=== PATIENT | female | born 1995 | race Caucasian/White ===

== ENCOUNTER 2017-01-11 15:41 | Inpatient (IN) | payer OTHER ==
[~2017-01-11] VITALS: Ht 157.5 cm; Wt 65.8 kg
--- NOTE | 2017-01-11 16:15 | NUR ---
PRE-ADMISSION NOTE: 21 yo female admitted to [facility] for Heroin, Benzos, Crack, meth and cocaine dependence. Pt is alert and oriented X4. Color pale, skin warm and dry. Respirations even and unlabored. Pt is 5feet 2inches tall and weighs 145 pounds. Vital signs: B/P 107/70 P: 99 T: 98.3 RR: 18 Pulse OX 98% Pt has allergies to Tegretol and Trileptal Denies PCP
[2017-01-11 16:22] VITALS: BP 107/70
[2017-01-11 16:35] LABS: *URINE HCG, QUAL NEGATIVE (NEGATIVE)
[2017-01-11] MEDS ORDERED: PRAZ2CAP2 PO (16:43)
[2017-01-11] MEDS ORDERED: TRAZ300T2 PO (16:43)
[2017-01-11] MEDS ORDERED: GABA-534 PO (16:43)
[2017-01-11] MEDS ORDERED: VALA500T PO (16:43)
[2017-01-11] MEDS ORDERED: LITH300C2 PO (16:43)
[2017-01-11] MEDS ORDERED: DULO60CA45 PO (16:43)
[2017-01-11] MEDS ORDERED: LORAZEPAM 2 MG/1 ML VIAL IM PRN (16:45)
[2017-01-11] MEDS ORDERED: BUPRENORPHINE HCL 2 MG TAB.SUBL SL PRN (16:45)
[2017-01-11] MEDS ORDERED: IBUPROFEN 600 MG TABLET PO PRN (16:45)
[2017-01-11] MEDS ORDERED: METHOCARBAMOL 750 MG TABLET PO PRN (16:45)
[2017-01-11] MEDS ORDERED: ONDANSETRON ODT 4 MG TAB.RAPDIS SL PRN (16:45)
[2017-01-11] MEDS ORDERED: LORAZEPAM 1 MG TABLET PO PRN ×2 (16:45)
[2017-01-11] MEDS ORDERED: CLONIDINE HCL 0.1 MG TABLET PO PRN (16:45)
[2017-01-11] MEDS ORDERED: LOPERAMIDE HCL 2 MG CAPSULE PO PRN ×2 (16:45)
[2017-01-11] MEDS ORDERED: MAG HYDROX/AL HYDROX/SIMETH 30 ML LIQUID UDC PO PRN (16:45)
[2017-01-11] MEDS ORDERED: MAGNESIUM HYDROXIDE 30 ML LIQUID UDC PO PRN (16:45)
[2017-01-11] MEDS ORDERED: DICYCLOMINE HCL 20 MG TABLET PO PRN (16:45)
[2017-01-11] MEDS ORDERED: ONDANSETRON 4 MG/2 ML VIAL IM PRN (16:45)
[2017-01-11] MEDS ORDERED: ACETAMINOPHEN 325 MG TABLET PO PRN (16:45)
[2017-01-11] MEDS ORDERED: MIRALAX 17 GM POWD.PACK PO PRN (16:45)
[2017-01-11] MEDS ORDERED: diphenhydrAMINE 50 MG CAPSULE PO PRN (16:45)
[2017-01-11 17:02] VITALS: BP 107/70
[2017-01-11 17:02] LABS: *AMPHETAMINE, URINE POSITIVE (NEGATIVE); *BARBITURATE, URINE NEGATIVE (NEGATIVE); *CANNABINOID, URINE NEGATIVE (NEGATIVE); *COCCAINE, URINE NEGATIVE (NEGATIVE); *OPIATE, URINE POSITIVE (NEGATIVE); *PHENCYCLIDINE SCREEN,URINE NEGATIVE (NEGATIVE)
--- NOTE | 2017-01-11 17:42 | NUR ---
ADMISSION NOTE: 21 yo female admitted to [facility] for Heroin, Benzos, Crack, meth and cocaine dependence. Pt is alert and oriented X4. Color pale, skin warm and dry. Respirations even and unlabored. Pt is 5 feet 2inches tall and weighs 145 pounds. Pt has abscess R forearm and multiple "picking" adams from doing meth. Vital signs: B/P 107/70 P: 99 T: 98.3 RR: 18 Pulse OX 98% Initial COWS 17 CIWA 13. Subutex 4mg po prn and Ativan 1mg po prn given Pt has allergies to Tegretol and Trileptal Denies PCP Pt states she was in [facility] 2 weeks ago and [facility] 24hours ago for "meth induced psychosis." Pt states [facility] helped her be admitted here. Pt has a history of anxiety, depression, bipolar, ADHD and Hep C+. 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 Substance History: Heroin: 4g/day IV last use 2 days ago Zanax: 3 bars a day Last use today Ativan: 6 2mg pills IV Last use today Crack cocaine: 400$/day smoke last use 5 days ago Meth: 1gm/day smoke Last use yesterday
[2017-01-11 18:32] LABS: *BILIRUBIN,URIN NEGATIVE (NEGATIVE); *BLOOD, URINE NEGATIVE (NEGATIVE); *COLOR,URINE YELLOW (YELLOW); *KETONES,URINE NEGATIVE (NEGATIVE); *PROTEIN,URINE NEGATIVE (NEGATIVE); LEUKOCYTE ESTERASE ,URINE TRACE (NEGATIVE); NITRITE, URINE NEGATIVE (NEGATIVE); UGLUCOSE NEGATIVE (NEGATIVE)
--- NOTE | 2017-01-11 18:50 | NUR ---
Pt states feels improved after Subutex and Ativan prn. COWS 12 and CIWA 9
--- NOTE | 2017-01-11 18:52 | NUR ---
END OF SHIFT NOTE: Report given to guide plant nurse . 21 yo female admitted to [facility] for Heroin, Benzos, Crack, meth and cocaine dependence. Pt is alert and oriented X4. Color pale, skin warm and dry. Respirations even and unlabored. Pt is 5 feet 2inches tall and weighs 145 pounds. Pt has abscess R forearm and multiple "picking" adams from doing meth. Pt in room. VSS. Subutex 4mg sl prn and Ativan 1mg po prn given for COWS 17 and CIWA 13 on admission. Safety precautions observed. Call light within reach.
[2017-01-11 19:01] LABS: *CLARITY,URINE HAZY (CLEAR)
[2017-01-11 19:02] LABS: BACTERIA,URINE MODERATE /HPF (NONE SEEN); MUCUS,URINE FEW /LPF (0-FEW); RBC,URINE 0-3 /HPF (0-3); SQUAMOUS EPITHELIAL CELL,UR MANY /HPF (NONE SEEN); YEAST,URINE MODERATE /HPF (NONE SEEN)
--- NOTE | 2017-01-11 19:30 | NUR ---
START OF SHIFT Report received from day shift nurse, Pt is a 21 yo female admitted to [facility] for Heroin, Benzos, Crack, meth and cocaine dependence. Pt is alert and oriented X4. Pt received in room,resting in bed with eyes closed; arousable on approach;breathing is even and non labored; Color pale, skin warm and dry. Pt has abscess R forearm and multiple "picking" adams from doing meth. Subutex 4mg sl prn and Ativan 1mg po prn were given by day shift for COWS 17 and CIWA 13 on admission. All safety measures in place per hospital policy; Call light within reach;will continue to monitor.
[2017-01-11 20:00] VITALS: BP 98/68
[2017-01-11 20:39] LABS: ALANINE AMINOTRANSFERASE 106 U/L (14-59); ALKALINE PHOSPHATASE 80 U/L (50-136); ASPARTATE AMINOTRANSFERASE 53 U/L (15-37); BILIRUBIN,TOTAL 0.3 mg/dL (0.2-1.0); CARBON DIOXIDE 31 mmol/L (21-32); CHLORIDE 102 mmol/L (98-107); CREATININE 0.8 mg/dL (0.6-1.3); GLUCOSE 84 mg/dL (74-106); MAGNESIUM 2.3 mg/dL (1.8-2.4); POTASSIUM 4.4 mmol/L (3.5-5.1); TOTAL PROTEIN, SERUM 7.8 g/dL (6.4-8.2); UREA NITROGEN, BLOOD 11 mg/dL (7-18)
[2017-01-11 20:40] LABS: BASOPHILS # (AUTO) 0.2 K/uL (0.0-8.0); BASOPHILS % (AUTO) 2.4 % (0.0-2.0); EOSINOPHILS # (AUTO) 0.1 K/uL (0.0-0.7); EOSINOPHILS % (AUTO) 1.1 % (0.0-7.0); HEMATOCRIT 42.1 % (37-47); LYMPHOCYTES % (AUTO) 21.1 % (20.5-51.5); MEAN CORPUSCULAR HGB CONC 33 g/dL (32.0-37.0); MEAN CORPUSCULAR VOLUME 84.3 FL (81.0-99.0); MONOCYTES # (AUTO) 0.6 K/UL (0.1-1.30); MONOCYTES % (AUTO) 6.4 % (0.0-11.0); NEUTROPHILS # (AUTO) 6.4 K/UL (1.8-8.9); PLATELET COUNT (AUTO) 428 K/UL (150-450); WHITE BLOOD COUNT (AUTO) 9.3 K/UL (4.0-11.2)
[2017-01-11 20:49] LABS: ETHANOL < 3 MG/DL (0-0)
[2017-01-11] MEDS ORDERED: LORAZEPAM 1 MG TABLET PO SCH (21:00)
[2017-01-11] MEDS ORDERED: PRAZOSIN HCL 1 MG CAPSULE PO SCH (21:00)
[2017-01-11] MEDS: LACTOBACILLUS RHAMNOSUS GG 1 EACH CAPSULE PO SCH (21:39)
[2017-01-11] MEDS: PRAZOSIN HCL 1 MG CAPSULE PO SCH (21:39)
[2017-01-11] MEDS: GABAPENTIN 300 MG CAPSULE PO SCH (21:39)
[2017-01-11] MEDS: SULFAMETH/TRIMETH 800/160 MG TABLET PO SCH (21:40)
[2017-01-11] MEDS ORDERED: LORAZEPAM 1 MG TABLET ONE (21:46)
--- NOTE | 2017-01-11 21:47 | NUR ---
PRN BENADRYL GIVEN ORDERED FOR C/O INSOMNIA/ITCHING.WILL MONITOR FOR EFFECTIVENESS.
--- NOTE | 2017-01-11 23:00 | NUR ---
PRN F/U PT IS RESTING IN BED WITH EYES CLOSED,IN DEEP SLEEP.NO S/S OF DISTRESS NOTED,WILL CONTINUE TO MONITOR.
[2017-01-12] VITALS: BP 102/71
[2017-01-12 04:00] VITALS: BP 90/55
--- NOTE | 2017-01-12 07:00 | NUR ---
END OF SHIFT Pt is a 21 yo female admitted to [facility] for Heroin, Benzos, Crack, meth and cocaine dependence. Pt is alert and oriented X4. Pt has abscess R forearm and multiple "picking" adams from doing meth. Pt will start on 5 day Subutex and Ativan tapers today. Last COWS/CIWA=3. PRN Benadryl was given to help sleep; pt slept 10 hrs; fluid intake was 641 mls,voided x 2. All safety measures in place per hospital policy; Call light within reach;will continue to monitor.
--- NOTE | 2017-01-12 07:30 | NUR ---
start of shift note: received pt from evening or night nurse supervisor nurse, pt is admitted for opiate/benzo/meth withdrawal/dependence. pts last cows 3 and ciwa 3. will continue to monitor pt for any changes and continue to meet pts needs
[2017-01-12] MEDS: BUPRENORPHINE HCL 2 MG TAB.SUBL SL SCH ×4 (08:36→21:21)
[2017-01-12] MEDS: GABAPENTIN 300 MG CAPSULE PO SCH ×2 (08:36→21:20)
[2017-01-12] MEDS: LORAZEPAM 1 MG TABLET PO SCH ×4 (08:36→21:19)
[2017-01-12] MEDS: SULFAMETH/TRIMETH 800/160 MG TABLET PO SCH ×2 (08:36→21:19)
[2017-01-12] MEDS: LACTOBACILLUS RHAMNOSUS GG 1 EACH CAPSULE PO SCH ×2 (08:37→21:19)
[2017-01-12] MEDS: VALACYCLOVIR HCL 500 MG TABLET PO SCH (08:37)
[2017-01-12] MEDS ORDERED: QUETIAPINE FUMARATE 25 MG TABLET PO PRN (08:45)
[2017-01-12] MEDS ORDERED: TUBERCULIN,PURIF.PROT.DERIV. 5 TU/0.1 ML TEST ID ONE (09:00)
[2017-01-12 10:20] VITALS: BP 104/60
--- NOTE | 2017-01-12 13:32 | NUR ---
lucas leonard: pt verbalized she has hx of hallucinations and psychosis and that she started seeing things floating.
--- NOTE | 2017-01-12 14:30 | NUR ---
prn -re-assessment: pt is sleeping in bed, no psychosis or agitation noted
[2017-01-12] MEDS: DULOXETINE 60 MG CAPSULE.DR PO SCH (14:32)
[2017-01-12 14:38] VITALS: BP 117/68
[2017-01-12 16:05] VITALS: BP 117/68
[2017-01-12] MEDS: LITHIUM CARBONATE 300 MG CAPSULE PO SCH (17:39)
[2017-01-12] MEDS ORDERED: Medication Not On Formulary EA (Trazodone Hcl (Desyrel) 1 TAB) PO SCH (18:00)
--- NOTE | 2017-01-12 19:14 | NUR ---
end of shift note: pt is in stable condition at this time, pt is admitted to [facility] for opiate/benzo/crack/meth withdrawal/dependence. pt's last cows 3 and ciwa 6. pt is in and out of reality and situation . pt is re-direct able. offered pt 1:1 for safety pt verbalized she doesn't need at this time. will endorse pt to shiftman nurse
[2017-01-12 20:00] VITALS: BP 111/67
--- NOTE | 2017-01-12 20:00 | NUR ---
1999 Patient received awake, but drowsy in manner and speech, and standing in hallway, having just returned from [facility] in recreation room. Patient responds to nurse's greeting and introduction with poor eye contact and slow, soft, somewhat drowsy, " Oh, hi. Are you my nurse now?" Patient assisted to her room #307 for V/S and nurse assess. Patient's gait is slightly slow, measured but fairly steady overall. Patient's color is pale pink and her skin is warm, dry and intact. Patient is oriented to person, place and her situation, but had to be reoriented to day, date and time. Patient denies any pain or other discomforts, but states that she does have some mild dizziness and visual hallucinations "sometimes, but not now". Patient states that she did eat 'a little' today of her regular diet and she is taking fluids ad vazquez, with no gastric issues so far. Patient c/o having " cotton mouth" sometimes, so she takes fluids more at those times. Vital signs are: 97.8-75-16 111/67, O2 Sat 98%, COWS 3, CIWA 7. Patient was admitted on 01/11/17 for: Heroin, Xanax, Ativan, Crack and Methamphetamine withdrawal and she is presently on both a 5-Day Ativan medication taper and a 5-Day Subutex medication taper, which she is apparently tolerating well thus far. Fall/seizure precautions continue. Patient states that [facility]. Bed is locked and in lowest position, bed rails are up X 2 and call light on patient's bed.
[2017-01-12] MEDS: PRAZOSIN HCL 1 MG CAPSULE PO SCH (21:20)
[2017-01-12] MEDS: TRAZODONE 100 MG TABLET PO SCH (21:20)
[2017-01-13] VITALS: BP 100/60
--- NOTE | 2017-01-13 | NUR ---
V/S : 98-68-12 100/60, O2 Sat 96%. Patient too sleepy to participate in COWS, CIWA assessments. COWS, CIWA ordered Q4h, while awake.
--- NOTE | 2017-01-13 04:00 | NUR ---
Patient awake and firmly, repeatedly insists that she must have a cigarette, though she appears slightly wobbly and is slurring her words. Patient refuses V/S, COWS, CIWA to be done at this time. Patient taken down to hospital patio for smoke break, via wheelchair, accompanied by HOUSEKEEPER.
--- NOTE | 2017-01-13 06:30 | NUR ---
0630 Patient slept a total of 8.5 hours and she had 3 voids and no stools. Total intake was 1,256 ml p.o. No prn medications given this shift. V/SS afebrile, last COWS 3, last CIWA 7 at 0000. Patient is presently sleeping comfortably with eyes closed and respirations deep, quiet, unlabored at 12. Occasional moist cough noted when awake and patient is mostly only 'fairly' alert when awake, speaking with slurred, sometimes incoherent speech and ambulating frequently in wobbly manner. Patient had minimal staff and wheelchair assist at times, when she was ambulating from her bed.
--- NOTE | 2017-01-13 07:45 | NUR ---
START OF SHIFT Rcvd endorsement from ongoing nurse, client is in room, she is a/o to name, place. she presents with depressed mood, flat affect, flushed face, enlarged pupils, and delayed speech. She reports anxiety, decreased appetite, mild visual hallucinations restless legs, and fatigue. She denies any N/V/D. Encourage client to attend to group therapy for skills to maintain sober. Encourage client to increase PO fluid intake as tolerated to facilitate detox. Client is a 21 y/o female, admitted to [facility] for withdrawal from heroin and benzodiazepines. She is on a 5 day Ativan taper and 5 day Subutex taper. Last CIWA / 3 @ 2200. Client had an uneventful night, she slept 8 hrs. She reports a hx of withdrawal-induced seizures, Client reports allergy to Tegretol, Trileptal, she is full code, regular diet. Side rails x 2 up/padded for seizure precautions. Call light within reach.
[2017-01-13 08:00] VITALS: BP 115/75
[2017-01-13] MEDS ORDERED: LORAZEPAM 1 MG TABLET PO SCH ×2 (09:00→21:00)
[2017-01-13] MEDS: LITHIUM CARBONATE 300 MG CAPSULE PO SCH ×2 (09:13→16:51)
[2017-01-13] MEDS: VALACYCLOVIR HCL 500 MG TABLET PO SCH (09:13)
[2017-01-13] MEDS: DULOXETINE 60 MG CAPSULE.DR PO SCH (09:13)
[2017-01-13] MEDS: BUPRENORPHINE HCL 2 MG TAB.SUBL SL SCH ×3 (09:13→20:33)
[2017-01-13] MEDS: SULFAMETH/TRIMETH 800/160 MG TABLET PO SCH ×2 (09:13→20:32)
[2017-01-13] MEDS: LACTOBACILLUS RHAMNOSUS GG 1 EACH CAPSULE PO SCH ×2 (09:13→20:30)
[2017-01-13] MEDS: GABAPENTIN 300 MG CAPSULE PO SCH ×2 (09:13→20:32)
[2017-01-13 10:08] LABS: HEPATITIS B SURFACE AG Negative (Negative)
--- NOTE | 2017-01-13 12:00 | NUR ---
Unable to assess for CIWA/COWS client is too sedated. Dr. Garcia notified.
[2017-01-13 12:55] VITALS: BP 101/65
[2017-01-13] MEDS ORDERED: LORAZEPAM 1 MG TABLET PO ONE (15:00)
[2017-01-13 16:55] VITALS: BP 119/73
--- NOTE | 2017-01-13 19:15 | NUR ---
END OF SHIFT Client is a 21 y/o female, admitted to [facility] for withdrawal from heroin and benzodiazepines. She is on a 5 day Ativan taper and 5 day Subutex taper. Last CIWA 9/ COWS 8 @ 0900. Client is on a 1:1 sitter for safety precautions. Medications scheduled at 1500, 1700 held d/t client too sedated, unable to assess for COWS/CIWA, Dr. Garcia and CN notified. Client is non-compliant with group therapy d/t withdrawal symptoms. Client consumes 50% of meals, PO fluid intake 500mL, void x 2. She reports a hx of withdrawal-induced seizures, Client reports allergy to Tegretol, Trileptal, she is full code, regular diet. Side rails x 2 up/padded for seizure precautions. Call light within reach.
--- NOTE | 2017-01-13 19:15 | NUR ---
START OF SHIFT NOTE: Patient is a 21 year old female, admitted to [facility] on 01/11/2017 for Benzodiazepines, Opioid, Methamphetamine, Ativan, and Crack dependence. Patient is continuing ordered 5 Day Ativan and 5 Day Subutex Taper which tolerated well without ASE. Patient remains compliant with treatment, medications, and diet regime. Patient reports Allergy to Tegretol, Trileptal, Carbamazepine, Oxcarbazepine. Patient is on Full code, Regular Diet, Fall and Seizures Precautions. PMH: Anxiety, Depression, ADHD Bipolar disorder, Insomnia, Hepatitis C, Herpes Simplex Virus Type, PTSD, and History of Withdrawal induced Seizures. Patient report Substance Use History: "Xanax PO 3 bars every day during last 18 months. Last used 3 bars on 01/11/2017; Ativan PO 6 pills of 2 mg each during last 18 months. Last used 6 pills of 2 mg each PO on 01/11/2017. Methamphetamine smoke 1 gram every day last 2 weeks. Last used 1 gram smoke on 01/10/2017. Heroin via IV 4 grams every day. Last used 4 grams via IV on 01/09/2017. Crack 1 grams smoke every day during last 2 weeks. Last smoke 1 gram on 01/06/2017". Patient reports recent treatment history: "[facility] - 2 weeks ago. "[facility]" - on 01/10/2017 for "methamphetamine induced psychosis". MRSA done and sent to lab. Upon endorsement, patient is in her room resting on the bed alert and oriented x2. Sitter at bedside for safety, for unstable gait. VSWNL. COWS 7,CIWA 8. Respirations are even and unlabored. Lung Sounds are clear throughout. Patient denied SOB and chest pain. Heart rate is regular, no murmur noted. Bowel Sounds are active in all four quadrants. Abdomen is soft and non-tender. Skin is warm and dry to touch. Patient has intact abscess on her Right forearm and multiple picking adams from Meth doing. All needs met. Safety measures on place. Call light within reach, bed in lowest position and locked, padded rails up bilaterally rails up bilaterally. Patient endorsed by day shift nurse. Report received. Will continue to monitor closely.
[2017-01-13 20:00] VITALS: BP 106/69
[2017-01-13] MEDS: TRAZODONE 100 MG TABLET PO SCH (20:30)
[2017-01-13] MEDS: PRAZOSIN HCL 1 MG CAPSULE PO SCH (20:31)
[2017-01-13] MEDS: OLANZAPINE 5 MG TABLET PO SCH (20:32)
[2017-01-14] VITALS: BP 107/63
[2017-01-14 04:00] VITALS: BP 107/70
--- NOTE | 2017-01-14 07:09 | NUR ---
END OF SHIFT NOTE: Patient is a 21 year old female, admitted to [facility] on 01/11/2017 for Benzodiazepines, Opioid, Methamphetamine, Ativan, and Crack dependence. Patient is continuing ordered 5 Day Ativan and 5 Day Subutex Taper which tolerated well without ASE. Patient remains compliant with treatment, medications, and diet regime. Patient reports Allergy to Tegretol, Trileptal, Carbamazepine, Oxcarbazepine. Patient is on Full code, Regular Diet, Fall and Seizures Precautions. PMH: Anxiety, Depression, ADHD Bipolar disorder, Insomnia, Hepatitis C, Herpes Simplex Virus Type, PTSD, and History of Withdrawal induced Seizures . MRSA nares collected and sent to lab. 1:1 Sitter at bedside for safety, as ordered. Last COWS 6, CIWA 5 @0400. Last VS @0400: T:97.9, BP 107/70, HR 89, RA SPO2 96%, RR 16, pain level "0/10". Patient denies SI/HI. Respirations unlabored and even. Patient denied SOB and chest pain. Abdomen is soft and non-tender. Skin is warm and dry to touch. Patient's RFA intact abscess, and continuing antibiotic therapy Bactrim Ds 1 tab Q12H PO. No PRN Medications administrated last lieutenant shift supervisor. Patient slept 9 hours, intake 794 ml, voided x1. Encouraged fluids intake as tolerated. Patient attended groups activities. All needs met. Safety measures on place. Call light within reach, bed in lowest position and locked, padded rails up bilaterally. Patient endorsed to day shift nurse. Report given.
--- NOTE | 2017-01-14 07:35 | NUR ---
START OF SHIFT Rcvd endorsement from ongoing nurse, client is in room, she sound asleep,RR 14, even, non-labored, difficult to arouse to name, speech unclear, unable to open eyes for long, she stated, I'm just to sleepy." Client is on 1:1 for safety d/t unsteady gait. Client is on antibiotic therapy Bactrim DS q12h for infection, intact abscess on R AC. Encourage client to attend to group therapy for skills to maintain sober. Encourage client to increase PO fluid intake as tolerated to facilitate detox, reinforcement needed. Client is a 21 y/o female, admitted to [facility] for withdrawal from heroin and benzodiazepines. She is on a 5 day Ativan taper and 5 day Subutex taper. Last CIWA 5/ COWS 6 @ 2200. Client had an uneventful night, she slept 9 hrs. She reports a hx of withdrawal-induced seizures, Client reports allergy to Tegretol, Trileptal, she is full code, regular diet. Side rails x 2 up/padded for seizure precautions. Call light within reach.
[2017-01-14] MEDS: LORAZEPAM 1 MG TABLET PO SCH ×5 (08:00→16:02)
--- NOTE | 2017-01-14 08:00 | NUR ---
Unable to assess CIWA/COWS, client is too sedated. CN notified
[2017-01-14] MEDS: LACTOBACILLUS RHAMNOSUS GG 1 EACH CAPSULE PO SCH ×3 (09:00→21:25)
[2017-01-14] MEDS: SULFAMETH/TRIMETH 800/160 MG TABLET PO SCH ×3 (09:00→21:25)
[2017-01-14] MEDS: LITHIUM CARBONATE 300 MG CAPSULE PO SCH ×3 (09:00→16:02)
[2017-01-14] MEDS: BUPRENORPHINE HCL 2 MG TAB.SUBL SL SCH ×4 (09:00→21:25)
[2017-01-14] MEDS: DULOXETINE 60 MG CAPSULE.DR PO SCH ×2 (09:00→10:22)
[2017-01-14] MEDS: GABAPENTIN 300 MG CAPSULE PO SCH ×3 (09:00→21:25)
[2017-01-14] MEDS: VALACYCLOVIR HCL 500 MG TABLET PO SCH ×2 (09:00→10:20)
[2017-01-14 10:33] VITALS: BP 117/74
--- NOTE | 2017-01-14 12:50 | NUR ---
Unable to assess CIWA/COWS, client is too sedated. CN and notified
[2017-01-14 12:57] VITALS: BP 110/66
--- NOTE | 2017-01-14 13:19 | NUR ---
Held Ativan 1mg PO client too sedated, RR 14, even, non-labored. She is difficult to arouse, unable to maintain eyes open, incoherent speech. CN notified. Addendum: 01/14/17 at 1321 by YAN JJ RN 1:1 sitter at bedside. Call light within reach.
[2017-01-14 16:03] VITALS: BP 114/75
--- NOTE | 2017-01-14 19:24 | NUR ---
END OF SHIFT Client is a 21 y/o female, admitted to [facility] for withdrawal from heroin and benzodiazepines. She is on a 5 day Ativan taper and 5 day Subutex taper. Last CIWA 8 @ 1600. Client is on 1: 1 sitter promoting safety. Client is in room, she is a/o to name, place, and situation. Held Ativan 1mg PO client too sedated, RR 14, even, non-labored. She was difficult to arouse, unable to maintain eyes open, incoherent speech. Client was not compliant with group therapy, encouragement needed. Client consumes 50-75 % of meals, adequate PO fluid intake 1400mL, void x 3. She reports a hx of withdrawal-induced seizures, Client reports allergy to Tegretol, Trileptal, she is full code, regular diet. Side rails x 2 up/padded for seizure precautions. Call light within reach.
[2017-01-14 20:00] VITALS: BP 109/74
--- NOTE | 2017-01-14 20:00 | NUR ---
Start of Shift Patient is a 21-year old, female, admitted for Opiates and Benzodiazepines dependence. Patient was placed on an Ativan and Subutex tapers, both to end at 11/24 in the evening. Pt is Full Code, on Regular Diet and is allergic to Tegretol, Trileptal, Carbamazepine, Oxcarbazepine and Withdrawal-induced seizures. Pt with history of Anxiety, Depression, Bipolar DO, ADHD, Hep C, Herpes Simplex Virus II, PTSD and Insomnia. Client is on 1:1 for safety d/t unsteady gait. Client is on antibiotic therapy Bactrim DS q12h for infection, intact abscess on R AC. Patient is AAOx4, noted to be squinting her eyes when trying to see. Skin is intact. Fall, seizure, universal and safety prec in place. Call light within reach. No SOB noted. Latest COWS-7, CIWA-8. Will continue to monitor.
[2017-01-14] MEDS: OLANZAPINE 5 MG TABLET PO SCH (21:25)
[2017-01-14] MEDS: PRAZOSIN HCL 1 MG CAPSULE PO SCH (21:26)
[2017-01-14] MEDS: TRAZODONE 100 MG TABLET PO SCH (21:26)
[2017-01-15] VITALS: BP 103/72
[2017-01-15 04:00] VITALS: BP 101/59
--- NOTE | 2017-01-15 07:15 | NUR ---
End of Shift Patient is a 21-year old, female, admitted for Opiates and Benzodiazepines dependence. Patient was placed on an Ativan and Subutex tapers, both to end at 11/24 in the evening. Pt is Full Code, on Regular Diet and is allergic to Tegretol, Trileptal, Carbamazepine, Oxcarbazepine and Withdrawal-induced seizures. Pt with history of Anxiety, Depression, Bipolar DO, ADHD, Hep C, Herpes Simplex Virus II, PTSD and Insomnia. Client is on 1:1 for safety d/t unsteady gait. Client is on antibiotic therapy Bactrim DS q12h for infection, intact abscess on R AC. Patient is AAOx4, noted to be squinting her eyes when trying to see. Skin is intact. Fall, seizure, universal and safety prec in place. Call light within reach. No SOB noted. Latest COWS-5, CIWA-5, slept for 7 hours. Endorsed to AM shift nurse for continuity of care.
--- NOTE | 2017-01-15 07:45 | NUR ---
START OF SHIFT Rcvd endorsement from ongoing nurse, client is in room, she is a/o to name, place, and situation. Client presents with depressed mood, flat affect, clammy skin. She reports feeling tired after a night sleep, decreased appetite, resless legs, and chills. Client is on 1:1 for safety precautions. Client completed antibiotic therapy Bactrim DS q12h x 7 doses for infection, intact abscess on R AC. Valterx 500mg PO daily for suppression Encourage client to attend to group therapy for skills to maintain sober. Encourage client to increase PO fluid intake as tolerated to facilitate detox. Client is a 21 y/o female, admitted to [facility] for withdrawal from heroin and benzodiazepines. She is on a 5 day Ativan taper and 5 day Subutex taper. Last CIWA 5/ COWS 5 @ 0400. Client had an uneventful night, she slept 9 hrs. She reports a hx of withdrawal-induced seizures, Client reports allergy to Tegretol, Trileptal, she is full code, regular diet. Side rails x 2 up/padded for seizure precautions. Call light within reach.
[2017-01-15 08:00] VITALS: BP 106/68
[2017-01-15] MEDS: VALACYCLOVIR HCL 500 MG TABLET PO SCH (09:26)
[2017-01-15] MEDS: LACTOBACILLUS RHAMNOSUS GG 1 EACH CAPSULE PO SCH ×2 (09:27→21:36)
[2017-01-15] MEDS: GABAPENTIN 300 MG CAPSULE PO SCH ×3 (09:27→21:35)
[2017-01-15] MEDS: BUPRENORPHINE HCL 2 MG TAB.SUBL SL SCH ×3 (09:27→21:39)
[2017-01-15] MEDS: DULOXETINE 60 MG CAPSULE.DR PO SCH (09:27)
[2017-01-15] MEDS: LORAZEPAM 1 MG TABLET PO SCH ×3 (09:27→21:36)
[2017-01-15] MEDS: LITHIUM CARBONATE 300 MG CAPSULE PO SCH ×2 (09:27→16:34)
[2017-01-15 12:55] VITALS: BP 96/60
--- NOTE | 2017-01-15 13:00 | NUR ---
Dr. Garcia notified of urine culture <10,000 CFU/ML MIXED CONTAMINANTS
[2017-01-15 16:00] VITALS: BP_SYST 103; BP_SYST 105; BP_DIAS 66; BP_DIAS 67
--- NOTE | 2017-01-15 19:30 | NUR ---
END OF SHIFT Client is a 21 y/o female, admitted to [facility] for withdrawal from heroin and benzodiazepines. She is on a 5 day Ativan taper and 5 day Subutex taper. Last CIWA / 6 @ 1600. Client is on a 1:1 sitter for safety precautions. Client is non-compliant with group therapy d/t withdrawal symptoms. Client consumes 50% of meals, PO fluid [id number], void x 4. She reports a hx of withdrawal-induced seizures, Client reports allergy to Tegretol, Trileptal, she is full code, regular diet. Side rails x 2 up/padded for seizure precautions. Call light within reach.
[2017-01-15 20:00] VITALS: BP 95/61
--- NOTE | 2017-01-15 20:00 | NUR ---
START OF SHIFT Received 21 year old female patient admitted on 01/11/17 for Benzodiazepine, Heroin, Crack and Methamphetamine dependency. Pt is full code with allergies to Tegretol, and Trileptal Pt reports a PMHx of anxiety ADHD, bipolar, depression, Hep C +, herpes simplex virus II, PTSD, withdrawal induced seizures, and insomnia. Pt reports using Xanax 3 bars PO daily for 18 months. Last dose was 3 bars on day of admission. Ativan 12 mg IV daily for 18 months. Last dose was 12 mg IV on day of admission. Heroin 4 grams IV daily for 4 months. Last dose was 4 grams on 01/11/17. Crack $400 daily (smoke) for 1.5 years. Last dose was $400 worth on 01/06/17 and Meth 1 gram smoke daily for 2 weeks. Last dose was 1 gram on 01/10/17. Pt placed on 5 day Ativan and 5 day Subutex taper, currently on day 3 and is tolerating well. Per endorsement, pt noted with right antecubital abcess, skin is intact and pt is being treated with Bactrim PO. Pt currently in room sleeping, responds to nurses greeting. Pt is alert and oriented x2, breathing is even and unlabored, safety measures in place. Pt is on 1:1 for safety. Will continue to monitor.
[2017-01-15] MEDS: PRAZOSIN HCL 1 MG CAPSULE PO SCH (21:00)
[2017-01-15] MEDS: TRAZODONE 100 MG TABLET PO SCH (21:35)
[2017-01-15] MEDS: OLANZAPINE 5 MG TABLET PO SCH (21:36)
[2017-01-15] MEDS: SULFAMETH/TRIMETH 800/160 MG TABLET PO SCH (21:37)
[2017-01-16] VITALS: BP 100/60
--- NOTE | 2017-01-16 | NUR ---
COWS/CIWA DEFERRED Pt lying in bed with eyes closed noted to be asleep. Breathing is even and unlabored. Safety measures in place. Will continue to monitor.
[2017-01-16 04:00] VITALS: BP 102/58
--- NOTE | 2017-01-16 04:00 | NUR ---
VITALS REFUSED, COWS/CIWA DEFERRED COWS and CIWA deferred d/t pt lying in bed with eyes closed noted to be asleep. Respirations 16, breathing is even and unlabored. Safety measures in place. Will continue to monitor. Addendum: 01/16/17 at 0536 by SIDDHARTHA VÁZQUEZ RN ERROR IN CHARTING
--- NOTE | 2017-01-16 04:00 | NUR ---
COWS/CIWA DEFERRED Pt lying in bed with eyes closed noted to be asleep. Breathing is even and unlabored. Safety measures in place. Will continue to monitor.
--- NOTE | 2017-01-16 07:00 | NUR ---
END OF SHIFT Pt is a 21 year old female patient admitted on 01/11/17 for Benzodiazepine, Heroin, Crack and Methamphetamine dependency. Pt is full code with allergies to tegretol and trileptal. Pt reports a PMHx of anxiety ADHD, bipolar, depression, Hep C +, herpes simplex virus II, PTSD, withdrawal induced seizures, and insomnia. She continues on a 5 day Ativan and 5 day Subutex taper, currently on day 4 and is tolerating well. She did not receive or request PRN medications. She slept a total of 10hrs, Intake:177mL, Void:x3, BM:0, COWS:7, CIWA:7. She continues on 1:1 for safety. Pt remains alert and oriented x2, breathing is even and unlabored, safety measures in place. Will endorse to AM shift.
[2017-01-16 08:00] VITALS: BP 94/60
--- NOTE | 2017-01-16 08:00 | NUR ---
VSS 98.8-96-20 BP 99/60. SATS 96% ON ALBER MAYA. PATIENT CONTINUES TO HAVE A 1:1 SITTER @ BEDSIDE AT ALL TIMES. COLOR GOOD BUT PATIENT IS SLEEPY, TREMULOUS, WITHDRAWAL SLIGHTLY BUT SHE DOES ANSWER NURSES QUESTIONS AND COOPERATES WITH ASSESSMENT. CIWA=28, COWS=14. PATIENT MAKES 75% EYE TO EYE CONTACT, INITIATES ADLS WITHOUT PROMPTING, INTERACTS WITH OTHERS EFFECTIVELY WITHOUT AGGRESSION. PATIENT SHOWS NO SIGNS OF ACUTE CARDIAC/RESPIRATORY DISTRESS OR SUPPRESSION.
[2017-01-16] MEDS: LORAZEPAM 1 MG TABLET PO SCH ×2 (09:02→20:52)
[2017-01-16] MEDS: DULOXETINE 60 MG CAPSULE.DR PO SCH (09:02)
[2017-01-16] MEDS: SULFAMETH/TRIMETH 800/160 MG TABLET PO SCH ×2 (09:02→20:51)
[2017-01-16] MEDS: LACTOBACILLUS RHAMNOSUS GG 1 EACH CAPSULE PO SCH ×2 (09:02→20:53)
[2017-01-16] MEDS: LITHIUM CARBONATE 300 MG CAPSULE PO SCH ×2 (09:03→17:04)
[2017-01-16] MEDS: GABAPENTIN 300 MG CAPSULE PO SCH ×3 (09:03→20:51)
[2017-01-16] MEDS: BUPRENORPHINE HCL 2 MG TAB.SUBL SL SCH ×2 (09:03→20:55)
[2017-01-16] MEDS: VALACYCLOVIR HCL 500 MG TABLET PO SCH (09:03)
[2017-01-16 12:00] VITALS: BP 92/58
--- NOTE | 2017-01-16 12:00 | NUR ---
VSS 98.1-88-19 BP 92/58. SATS 96% ON ROOM AIR. PATIENT ATE 50% ON LUNCH WITHOUT DIFFICULTY. PATIENT ATTENDS GROUP ACTIVITIES AND WENT DOWNSTAIRS TO SMOKE IN WHELLCHAIR WITH 1:1 SITTER WITH HER AT ALL TIMES. CIWA=24, COWS-12. PATIENT IN RECOVERING WITHDRAWAL. PATIENT SHOWS NO SIGNS OF ACUTE CARDIAC/RESPIRATORY DISTRESS OR SUPPRESSION.
[2017-01-16 12:11] LABS: *GC NAA Negative (Negative)
[2017-01-16 15:26] LABS: *TRIC.VAG. NAA Negative (Negative)
[2017-01-16 16:00] VITALS: BP 100/61
--- NOTE | 2017-01-16 16:00 | NUR ---
VSS 97.9-78-19 BP 100/61. SATS 100% ON ROOM AIR. COLOR GOOD. PATIENT IS A&O X 3 BUT STILL APPEARS VERY SLEEPY BUT IS EASILY AROUSABLE. PATIENTIS CIWA=21 AND COWS=11; SO, GENERAL CONDITION IS IMPROVING BUT PATIENT IS STILL IN WITHDRAWAL. PATIENT WAS ABLE TO GO DOWN TO SMOKE VIA WHEELCHAIR. PATIENT SHOWS NO SIGNS OF ACUTE CARDIAC/RESPIRATORY DISTRESS OR SUPPRESSION.
--- NOTE | 2017-01-16 18:00 | NUR ---
PLEASE NOTE THAT PATIENT C/O RESTLESSNESS AND NURSE GAVE ROBAXIN 750 MG, BENTYL 20 MG PO, AND VISTARIL 25 MG/ PO PRN AT 17:00. NURSE ALSO ADDED ATIVAN 2 MG PO PRN AT 18:00. THEN PATIENT WENT OUT TO SMOKE. COLOR GOOD. AMBULATES WITH A STEADY GAIT. PATIENT STATES THAT HE FEELS BETTER. PATIENT SHOWS NO SIGNS OF ACUTE CARDIAC/RESPIRATORY DISTRESS OR SUPPRESSION.
--- NOTE | 2017-01-16 18:00 | NUR ---
END OF SHIFT NOTE PLEASE DISREGARD THE ABOVE NOTE. PATIENT DID NOT RECEIVE PRN ROBAXIN, OR BENTYL, OR VISTARIL, OR ATIVAN. PATIENT CONTINUES WITH 1:1 SITTER. PATIENT IS SLEEPY BUT EASILY AROUSABLE TO VOICE. PATIENT SHOWS NO SIGNS OF DISTRESS.
--- NOTE | 2017-01-16 19:15 | NUR ---
START OF SHIFT Received 21 year old female patient admitted on 01/11/17 for Benzodiazepine, Heroin, Crack and Methamphetamine dependency. Pt is full code with allergies to Tegretol, and Trileptal Pt reports a PMHx of anxiety ADHD, bipolar, depression, Hep C +, herpes simplex virus II, PTSD, withdrawal induced seizures, and insomnia. Pt reports using Xanax 3 bars PO daily for 18 months. Last dose was 3 bars on day of admission. Ativan 12 mg IV daily for 18 months. Last dose was 12 mg IV on day of admission. Heroin 4 grams IV daily for 4 months. Last dose was 4 grams on 01/11/17. Crack $400 daily (smoke) for 1.5 years. Last dose was $400 worth on 01/06/17 and Meth 1 gram smoke daily for 2 weeks. Last dose was 1 gram on 01/10/17. Pt placed on 5 day Ativan and 5 day Subutex taper, and is tolerating well. Per endorsement, pt did not receive or request PRN medications. Pt is alert and oriented x2, breathing is even and unlabored, safety measures in place. Pt is on 1:1 for safety. Will continue to monitor.
[2017-01-16 20:00] VITALS: BP 109/71
[2017-01-16] MEDS: TRAZODONE 100 MG TABLET PO SCH (20:50)
[2017-01-16] MEDS: OLANZAPINE 5 MG TABLET PO SCH (20:52)
[2017-01-16] MEDS: PRAZOSIN HCL 1 MG CAPSULE PO SCH (20:52)
[2017-01-17] VITALS: BP 98/65
--- NOTE | 2017-01-17 | NUR ---
COWS/CIWA DEFERRED Pt lying in bed with eyes closed noted to be asleep. Breathing even and unlabored. Safety measures in place. Will continue to monitor.
[2017-01-17 04:00] VITALS: BP 101/62
--- NOTE | 2017-01-17 04:00 | NUR ---
COWS/CIWA DEFERRED Pt lying in bed with eyes closed noted to be asleep. Breathing even and unlabored. Safety measures in place. Will continue to monitor.
--- NOTE | 2017-01-17 07:00 | NUR ---
END OF SHIFT Pt is a 21 year old female patient admitted on 01/11/17 for Benzodiazepine, Heroin, Crack and Methamphetamine dependency. Pt is full code with allergies to Tegretol, and Trileptal. She continues on a 5 day Ativan and 5 day Subutex taper, and is tolerating well. She did not receive or request PRN medications. She slept a total of 9hrs, Intake:216mL, Void:x2, BM:0 COWS:9, CIWA:9. She remains alert and oriented x2, breathing is even and unlabored, safety measures in place. Continues on 1:1 for safety. Will endorse to AM shift.
--- NOTE | 2017-01-17 07:01 | NUR ---
Start of Shift Notes: Received patient in her room. Alert and verbally responsive. Oriented x 4. Respirations even and unlabored. No SOB noted. Skin warm and dry to touch. Abdomen soft and non-distended. BS (+) in all 4 quadrants. No complains of N/V/D or constipation noted. No complains of abdominal discomfort noted. Voids independently. Ambulatory ad vazquez with steady gait. Patient is a 21 year old female admitted for opiate, BZO, crack and methamphetamine dependence who was placed on a 5-day Ativan and 5-day Subutex taper as ordered. No adverse reactions noted. Has past medical hx of Hep C, HSV 2, anxiety, ADHD, bipolar and depression. Allergic to Tegretol and Trileptal. Educated patient on her current plan of care for the day and her medication regimen. Encouraged oral fluid intake and encouraged group participation to learn new skills to prevent relapse.
[2017-01-17 08:00] VITALS: BP 136/87
[2017-01-17] MEDS ORDERED: LORAZEPAM 1 MG TABLET PO SCH (09:00)
[2017-01-17] MEDS ORDERED: BUPRENORPHINE HCL 2 MG TAB.SUBL SL SCH (09:00)
[2017-01-17] MEDS: LITHIUM CARBONATE 300 MG CAPSULE PO SCH ×2 (09:09→16:51)
[2017-01-17] MEDS: SULFAMETH/TRIMETH 800/160 MG TABLET PO SCH ×2 (09:09→20:47)
[2017-01-17] MEDS: LACTOBACILLUS RHAMNOSUS GG 1 EACH CAPSULE PO SCH ×2 (09:09→20:46)
[2017-01-17] MEDS: VALACYCLOVIR HCL 500 MG TABLET PO SCH (09:09)
[2017-01-17] MEDS: GABAPENTIN 300 MG CAPSULE PO SCH ×3 (09:09→20:47)
[2017-01-17] MEDS: DULOXETINE 60 MG CAPSULE.DR PO SCH (09:09)
[2017-01-17 12:00] VITALS: BP 99/64
[2017-01-17 16:00] VITALS: BP 101/71
--- NOTE | 2017-01-17 19:14 | NUR ---
End of Shift Notes: Patient completed her 5-day Subutex and 5-day Ativan taper today. Tolerating taper well. No adverse reactions noted. VS monitored closely. No significant abnormalities noted. Withdrawal symptoms were closely monitored. Initial COWS 9/CIWA 9, patient noted with restlessness, myalgia, and AV hallucinations. Kept on 1:1 for safety. Noted with episodes of AV hallucinations m/b hearing people in her room and seeing a foot behind her. Redirected and re-orientation provided. Last COWS 05/27. Dr. Kay and Dr. Garcia made aware of patient's hallucinations. Gait slow and steady. Compliant with care and treatment. All needs met and attended. Will continue to monitor closely.
--- NOTE | 2017-01-17 19:15 | NUR ---
Start of shift note Received report from day shift nurse. Pt is a 21 yo female, A+Ox4, presenting to [facility] for Opiate/Benzo/Meth/cocaine dependence. Pt has Allergies to Tegretol and Trileptal, is on Full code status, and on Regular diet. Pt is on Fall and Seizure precautions. Pt has HX of Anxiety, ADHD, Bipolar, depression, Hep C, Herpes Simplex Virus II, PTSD, and Insomnia. Pt is on 1:1 sitter. Pt has completed 5 day Ativan and 5 day Subutex tapers, tolerated well. No s/s of distress noted at this time. Respirations even and unlabored. Will continue to monitor.
[2017-01-17] MEDS: PRAZOSIN HCL 1 MG CAPSULE PO SCH (20:46)
[2017-01-17] MEDS: TRAZODONE 100 MG TABLET PO SCH (20:46)
[2017-01-17] MEDS: OLANZAPINE 5 MG TABLET PO SCH (20:47)
[2017-01-17 20:51] VITALS: BP 122/86
[2017-01-18 00:12] VITALS: BP 118/81
[2017-01-18 04:12] VITALS: BP 110/75
--- NOTE | 2017-01-18 06:52 | NUR ---
End of shift note Pt is a 21 yo female, A+Ox4, presenting to [facility] for Opiate/Benzo/Meth/cocaine dependence. Pt has Allergies to Tegretol and Trileptal, is on Full code status, and on Regular diet. Pt is on Fall and Seizure precautions. Pt has HX of Anxiety, ADHD, Bipolar, depression, Hep C, Herpes Simplex Virus II, PTSD, and Insomnia. Pt is on 1:1 sitter. Pt has completed 5 day Ativan and 5 day Subutex tapers, tolerated well. Pt slept for a total of 8 HRS. Last COWS: 3 and Last CIWA: 3 @0400. No s/s of distress noted at this time. Respirations even and unlabored. Will endorse to day shift nurse.
--- NOTE | 2017-01-18 07:00 | NUR ---
Start of Shift Notes: Received patient in her room with a 1:1. Alert and verbally responsive. Oriented x 4. Respirations even and unlabored. No SOB noted. Skin warm and dry to touch. Abdomen soft and non-distended. BS (+) in all 4 quadrants. No complains of N/V/D or constipation noted. No complains of abdominal discomfort noted. Voids independently. Ambulatory ad vazquez with steady gait. Patient is a 21 year old female admitted for opiate, BZO, crack and methamphetamine dependence who was placed on a 5-day Ativan and 5-day Subutex taper as ordered. No adverse reactions noted. Has past medical hx of Hep C, HSV 2, anxiety, ADHD, bipolar and depression. Allergic to Tegretol and Trileptal. Educated patient on her current plan of care for the day and her medication regimen. Encouraged oral fluid intake and encouraged group participation to learn new skills to prevent relapse.
[2017-01-18 08:00] VITALS: BP 101/75
[2017-01-18] MEDS: DULOXETINE 60 MG CAPSULE.DR PO SCH (08:58)
[2017-01-18] MEDS: LITHIUM CARBONATE 300 MG CAPSULE PO SCH ×2 (08:58→17:11)
[2017-01-18] MEDS: GABAPENTIN 300 MG CAPSULE PO SCH ×3 (08:58→22:36)
[2017-01-18] MEDS: VALACYCLOVIR HCL 500 MG TABLET PO SCH (08:58)
[2017-01-18] MEDS: LACTOBACILLUS RHAMNOSUS GG 1 EACH CAPSULE PO SCH (08:58)
[2017-01-18] MEDS: SULFAMETH/TRIMETH 800/160 MG TABLET PO SCH ×2 (08:58→22:35)
--- NOTE | 2017-01-18 09:28 | NUR ---
Clonidine 0.1mg PO/Robaxin 750mg PO Patient noted with gross tremors, twitching, pupils dilated. Complained of 7/10 muscle aches, appears anxious and tearful. COWS 10. Medicated patient with Clonidine 0.1mg PO and Robaxin 750 mg PO as ordered. Will monitor for effectiveness.
--- NOTE | 2017-01-18 10:28 | NUR ---
Re-assessment: Per patient, PRN Clonidine and Robaxin effective in reducing anxiety, chills, and muscle aches. PL 04/04.
--- NOTE | 2017-01-18 10:30 | NUR ---
MD Communication: Notified Dr. Garcia of patient's last COWS and CIWA score. Per MD, he will come and evaluate the patient.
[2017-01-18 12:00] VITALS: BP 125/81
--- NOTE | 2017-01-18 13:00 | NUR ---
New Orders: Patient's Subutex taper will be extended x 1 more day starting at 1300 today. Patient education provided.
[2017-01-18] MEDS: BUPRENORPHINE HCL 2 MG TAB.SUBL SL SCH ×2 (13:17→22:36)
[2017-01-18] MEDS: BACLOFEN 10 MG TABLET PO SCH ×2 (14:19→22:35)
[2017-01-18] MEDS ORDERED: LIDOCAINE HCL 1% 20 ML VIAL IJ PRN (15:45)
[2017-01-18 16:00] VITALS: BP 124/69
[2017-01-18] MEDS ORDERED: KETOROLAC TROMETHAMINE 30 MG INJ IM PRN (18:00)
[2017-01-18] MEDS ORDERED: LORAZEPAM 1 MG TABLET PO PRN ×2 (18:00)
--- NOTE | 2017-01-18 19:01 | NUR ---
End of Shift Notes: Patient extended her Subutex taper today due to increase s/s of opiate withdrawal. Patient tolerated well. No adverse reactions noted. VS monitored closely. No significant abnormalities noted. Withdrawal symptoms were closely monitored. Initial COWS 3/CIWA 4, patient noted with restlessness, myalgia, and AV hallucinations. Kept on 1:1 for safety. At 0920, patient's COWS was noted to be 10 with CIWA 9, due to gross tremors, anxiety and muscle aches. Medicated patient with Clonidine 0.1mg PO and Robaxin 750 mg PO as ordered with help after 1 hour. Denies S/I or H/I. Redirected and re-orientation provided. Last COWS 8/CIWA 6. Dr. Kay aware of patient's hallucinations. Gait slow and steady. Compliant with care and treatment. All needs met and attended. Will continue to monitor closely.
--- NOTE | 2017-01-18 19:10 | NUR ---
Start of shift note Received report from day shift nurse. Pt is a 21 yo female, A+Ox4, presenting to [facility] for Opiate/Benzo/Meth/cocaine dependence. Pt has Allergies to Tegretol and Trileptal, is on Full code status, and on Regular diet. Pt is on Fall and Seizure precautions. Pt has HX of Anxiety, ADHD, Bipolar, depression, Hep C, Herpes Simplex Virus II, PTSD, and Insomnia. Pt is on 1:1 sitter. Pt has completed 5 day Ativan and 5 day Subutex tapers and is on 2 day Subutex taper extension, tolerated well. No s/s of distress noted at this time. Respirations even and unlabored. Will continue to monitor.
[2017-01-18 20:25] VITALS: BP 100/64
[2017-01-18] MEDS ORDERED: LORAZEPAM 1 MG TABLET PO ONE (21:00)
[2017-01-18] MEDS: OLANZAPINE 5 MG TABLET PO SCH (22:35)
[2017-01-18] MEDS: PRAZOSIN HCL 1 MG CAPSULE PO SCH (22:36)
[2017-01-18] MEDS: TRAZODONE 100 MG TABLET PO SCH (22:36)
[2017-01-19 00:12] VITALS: BP 107/59
[2017-01-19 04:19] VITALS: BP 110/62
--- NOTE | 2017-01-19 07:00 | NUR ---
End of shift note Pt is a 21 yo female, A+Ox4, presenting to [facility] for Opiate/Benzo/Meth/cocaine dependence. Pt has Allergies to Tegretol and Trileptal, is on Full code status, and on Regular diet. Pt is on Fall and Seizure precautions. Pt has HX of Anxiety, ADHD, Bipolar, depression, Hep C, Herpes Simplex Virus II, PTSD, and Insomnia. Pt is on 1:1 sitter. Pt has completed 5 day Ativan and 5 day Subutex tapers, tolerated well. Pt slept for a total of 9 HRS. Last COWS: 3 and Last CIWA: 3 @0400. No s/s of distress noted at this time. Respirations even and unlabored. Will endorse to day shift nurse.
--- NOTE | 2017-01-19 07:30 | NUR ---
START OF SHIFT Pt is a 21 yr old female, A&Ox3. pt was admitted on 01/11/17 for Opiate/Benzo and is on 6 day Ativan and Subutex taper as ordered. Received report from shift manager nurse. Pt is on 1:1 safety. Last COWS score was 3 and CIWA score was 3 at 0400. Pt slept for 9 hrs. Pt is on fall and seizure precautions. Pt is full code, regular diet and allergies to Tegretol and Trileptal. Pt is currently in bed resting with respirations even and unlabored. No acute distress noted. Pt is still noted skin abscess on right arm. Safety precautions observed. Call light is within reach. Will continue to monitor.
--- NOTE | 2017-01-19 08:00 | NUR ---
COWS AND CIWA DEFERRED COWS and CIWA is deferred at this time. Pt is currently in bed sleeping with respirations even and unlabored. No acute distress noted. 1:1 sitter is at bedside. Will continue to monitor.
[2017-01-19] MEDS ORDERED: BUPRENORPHINE HCL 2 MG TAB.SUBL SL SCH (09:00)
[2017-01-19 09:10] VITALS: BP 88/58
[2017-01-19] MEDS: BACLOFEN 10 MG TABLET PO SCH ×3 (09:58→21:23)
[2017-01-19] MEDS: DULOXETINE 60 MG CAPSULE.DR PO SCH (09:58)
[2017-01-19] MEDS: LITHIUM CARBONATE 300 MG CAPSULE PO SCH ×2 (09:58→18:29)
[2017-01-19] MEDS: SULFAMETH/TRIMETH 800/160 MG TABLET PO SCH ×2 (09:58→21:23)
[2017-01-19] MEDS: VALACYCLOVIR HCL 500 MG TABLET PO SCH (09:58)
[2017-01-19] MEDS: GABAPENTIN 300 MG CAPSULE PO SCH ×3 (09:58→21:24)
[2017-01-19 12:00] VITALS: BP 102/61
[2017-01-19 16:00] VITALS: BP 107/65
[2017-01-19] MEDS ORDERED: LIDOCAINE 2%-EPI 1:100,000 20 ML VIAL TP ONE (18:15)
[2017-01-19] MEDS ORDERED: LIDOCAINE HCL 1% 20 ML VIAL IJ ONE (18:45)
--- NOTE | 2017-01-19 19:00 | NUR ---
END OF SHIFT Pt is a 21 yr old female, AA&Ox3. pt was admitted on 01/11/17 for Opiate/Benzo dependence and has completed 6 day Ativan and 6 day Subutex taper as ordered. Medication aura well. Pt's 1:1 was removed during the day. Pt abscess on right arm was drained at 1830. Pt aura I&D. Pt remains on Bactrim DS for abscess. Picture and Wound culture was obtain and placed in chart. Pt is to be discharged tomorrow on 01/20/17. Last CIWA score was 2 and COWS score was 6 at 1600. safety precautions observed call light is within reach.
[2017-01-19 20:00] VITALS: BP 102/61
--- NOTE | 2017-01-19 20:00 | NUR ---
START OF SHIFT NOTE RECEIVED REPORT FROM DAY SHIFT NURSE. PATIENT IS A 21 YEAR OLD FEMALE ADMITTED FOR OPIATE/BENZO DEPENDENCE. PATIENT COMPLETED EXTENDED ATIVAN AND SUBUTEX TAPER. PATIENT IS MEDICALLY CLEARED TO BE DISCHARGE TOMORROW. PATIENT IS ALLERGIC TO TEGRETOL AND TRILEPTAL. PATIENT REPORTS PMH OF ANXIETY, ADHD, BIPOLAR, DEPRESSION, HEP C +, HERPES SIMPLEX VIRUS II , PTSD AND INSOMNIA. PATIENT WITH HISTORY OF WITHDRAWAL INDUCED SEIZURES. PATIENT S/P I & D ON RIGHT ANTECUBITAL. ON BACTRIM DS AND VALTREX. LAST COWS 6 AND CIWA 2. RECEIVED PATIENT IN THE ROOM, PATIENT REPORTS ANXIETY DUE TO HER DISCHARGING TOMORROW. POSITIVE ENCOURAGEMENT GIVEN AND RELAXATION TECHNIQUE PROVIDED. NO N/V. ENCOURAGED FLUIDS. ON FALL/SEIZURE PRECAUTION. SAFETY MEASURES IN PLACE. CALL LIGHT IN REACH. WILL CONTINUE TO MONITOR.
[2017-01-19] MEDS: TRAZODONE 100 MG TABLET PO SCH (21:23)
[2017-01-19] MEDS ORDERED: SULF1TAB3 PO (21:25)
[2017-01-19] MEDS ORDERED: CLON0.1T14 PO (21:25)
[2017-01-19] MEDS ORDERED: TRAZ-147 PO (21:25)
[2017-01-19] MEDS ORDERED: IBUP-1955 PO (21:25)
[2017-01-19] MEDS ORDERED: METH-406 PO (21:25)
[2017-01-19] MEDS ORDERED: VALA500T PO (21:25)
[2017-01-19] MEDS ORDERED: GABA-534 PO ×2 (21:25)
[2017-01-19] MEDS ORDERED: OLAN5TAB3 PO (21:25)
[2017-01-19] MEDS: OLANZAPINE 5 MG TABLET PO SCH (22:20)
[2017-01-19] MEDS: PRAZOSIN HCL 1 MG CAPSULE PO SCH (22:37)
[2017-01-19] MEDS ORDERED: PRAZOSIN HCL 1 MG CAPSULE ONE (22:43)
--- NOTE | 2017-01-20 | NUR ---
COWS AND CIWA DEFERRED PATIENT SLEEPING. COWS AND CIWA DEFERRED. RESPIRATION EVEN AND UNLABORED. SAFETY MEASURES IN PLACE. CALL LIGHT IN REACH. WILL CONTINUE TO MONITOR.
--- NOTE | 2017-01-20 04:00 | NUR ---
COWS AND CIWA DEFERRED PATIENT SLEEPING. COWS AND CIWA DEFERRED. RESPIRATION EVEN AND UNLABORED. SAFETY MEASURES IN PLACE. CALL LIGHT IN REACH. WILL CONTINUE TO MONITOR.
--- NOTE | 2017-01-20 07:33 | NUR ---
END OF SHIFT NOTE PATIENT IS A 21 YEAR OLD FEMALE ADMITTED FOR OPIATE/BENZO DEPENDENCE. PATIENT COMPLETED EXTENDED ATIVAN AND SUBUTEX TAPER. PATIENT IS MEDICALLY CLEARED TO BE DISCHARGE TODAY. PATIENT IS ALLERGIC TO TEGRETOL AND TRILEPTAL. PATIENT S/P I & D ON RIGHT ANTECUBITAL, DRESSING INTACT. ON BACTRIM DS AND VALTREX. PATIENT WAS ANXIOUS BEGINNING OF SHIFT DUE TO HER DISCHARGING . POSITIVE ENCOURAGEMENT GIVEN AND RELAXATION TECHNIQUE PROVIDED. ENCOURAGED FLUIDS. ON FALL/SEIZURE PRECAUTION. SAFETY MEASURES IN PLACE. CALL LIGHT IN REACH. WILL CONTINUE TO MONITOR. SLEPT 6 HOURS. FLUID INTAKE 1,500 ML. VOIDED X . BM. LAST COWS 6 AND CIWA 2.
--- NOTE | 2017-01-20 07:43 | NUR ---
START OF SHIFT Received report from night nurse. 21 year old female patient admitted on 01/11/17 for opiate/benzo/crack/methamphetamine withdrawal. Pt has completed 5 day Ativan and 5 day Subutex taper and is medically cleared for discharge. Pt slept for 6 hours, most recent COWS 6 and CIWA 2 at night. Pt has wound on Right AC, wound care is being completed daily, pictures are in chart. Pt is on Bactrim and Valtrex for reported herpes. Pt remains compliant, all needs met at this time. Will continue to monitor.
[2017-01-20 08:23] VITALS: BP 101/62
[2017-01-20] MEDS: VALACYCLOVIR HCL 500 MG TABLET PO SCH (08:59)
[2017-01-20] MEDS: LITHIUM CARBONATE 300 MG CAPSULE PO SCH (09:00)
[2017-01-20] MEDS: SULFAMETH/TRIMETH 800/160 MG TABLET PO SCH (09:00)
[2017-01-20] MEDS: GABAPENTIN 300 MG CAPSULE PO SCH (09:00)
[2017-01-20] MEDS: BACLOFEN 10 MG TABLET PO SCH (09:00)
[2017-01-20] MEDS: DULOXETINE 60 MG CAPSULE.DR PO SCH (09:00)
--- NOTE | 2017-01-20 09:30 | NUR ---
WOUND CARE DONE As ordered, wound care done, old dressing and packing removed. Wound is healing as expected. Wound site cleansed with NS, pat dry, packed with iodoform, covered with gauze and secured with kerlix. Pt tolerated well, denies pain. Pt education provided verbally and written instructions provided for aftercare. Pt verbalizes understanding.
--- NOTE | 2017-01-20 11:15 | NUR ---
D/C NOTES Pt is A/O x4. V/S remain WNL. Pt denies SI/HI or hallucinations at this time, states earlier "it was mild." Pt shows no s/s of acute withdrawal at this time, and is stable. has medically cleared pt for d/c. Education on Hepatitis C, smoking cessation and medication side effects provided. Pt verbalizes understanding. All pt belongings are in belonging bag, including prescriptions, pt did not have any home medications. Refuses PNU vaccination. Pt is being accompanied by CHARGE ATTENDANT at this time to be transported to rehab. All needs met.
== END 2017-01-20 11:15 | disposition other institution (70) | DRG 895 ==
LOC: SRC 15:41
PROVIDERS: ADMIT Internal Medicine; ATTEND Internal Medicine
PROC: 0H9DXZZ Drainage of Right Lower Arm Skin, External Approach (ICD-10-PCS; principal; 2017-01-11)
PROC: HZ2ZZZZ Detoxification Services for Substance Abuse Treatment (ICD-10-PCS; principal; 2017-01-11)
PROC: HZ31ZZZ Individual Counseling for Substance Abuse Treatment, Behavioral (ICD-10-PCS; 2017-01-14)
PROC: HZ41ZZZ Group Counseling for Substance Abuse Treatment, Behavioral (ICD-10-PCS; 2017-01-19)
DX: F11.23 Opioid dependence with withdrawal (principal); F25.0 Schizoaffective disorder, bipolar type; L02.413 Cutaneous abscess of right upper limb; N39.0 Urinary tract infection, site not specified; F13.232 Sedative, hypnotic or anxiolytic dependence with withdrawal with perceptual disturbance; F14.10 Cocaine abuse, uncomplicated; F10.10 Alcohol abuse, uncomplicated; F17.210 Nicotine dependence, cigarettes, uncomplicated; A60.00 Herpesviral infection of urogenital system, unspecified; Y90.9 Presence of alcohol in blood, level not specified; F43.10 Post-traumatic stress disorder, unspecified; Z81.8 Family history of other mental and behavioral disorders; Z72.51 High risk heterosexual behavior; Z59.0 Homelessness; S51.0 Open wound of elbow; X78.8XXS Intentional self-harm by other sharp object, sequela; G47.00 Insomnia, unspecified; H54.7 Unspecified visual loss; Z79.899 Other long term (current) drug therapy; B18.2 Chronic viral hepatitis C; Z91.89 Other specified personal risk factors, not elsewhere classified; R26.81 Unsteadiness on feet; N87.9 Dysplasia of cervix uteri, unspecified; Z82.0 Family history of epilepsy and other diseases of the nervous system; Z59.1 Inadequate housing; R74.0 Nonspecific elevation of levels of transaminase and lactic acid dehydrogenase [LDH]
CPT/HCPCS: 36415; 70030-TC; 80307; 80324; 80346; 80361; 83735; 84703; 85025; 86592; 86705; 86803; 87070; 87086; 87340; 87491; 87806; A4663; G0480; J3490; Q0163